=== PATIENT | male | born 1970 | race Caucasian/White ===

== ENCOUNTER 2024-01-14 18:03 | Emergency (ER) | payer SELFPAY ==
[~2024-01-14] VITALS: Ht 182.9 cm; Wt 65.5 kg
[2024-01-14 18:51] VITALS: BP 110/44; PULSE 54; RESP 18; TEMP 97.8; O2SAT 97
[2024-01-14] MEDS ORDERED: CEPH-588 PO (19:28)
[2024-01-14] MEDS ORDERED: SULF-59 PO (19:28)
[2024-01-14] MEDS: BACITRACIN OINT 500 UNITS/GM PKT TP ONE (19:33)
[2024-01-14 19:36] VITALS: BP 110/44; PULSE 54; RESP 18; TEMP 97.8; O2SAT 97
== END 2024-01-14 19:36 | disposition home or self-care (01) ==
LOC: MED 18:03
DX: L03.113 Cellulitis of right upper limb (principal); Z79.1 Long term (current) use of non-steroidal anti-inflammatories (NSAID); Z79.899 Other long term (current) drug therapy
CPT/HCPCS: 99283